=== PATIENT | female | born 1960 | race African-American/Black ===

== ENCOUNTER 2023-10-04 15:48 | Inpatient (IN) | payer MEDICARE, OTHER ==
[~2023-10-04] VITALS: Ht 167.6 cm; Wt 99.8 kg
[2023-10-04] MEDS ORDERED: ONDANSETRON HCL/PF 4 MG/2 ML VIAL ONE (16:29)
[2023-10-04] MEDS: ONDANSETRON HCL/PF 4 MG/2 ML VIAL IVP ONE (16:39)
[2023-10-04 16:40] LABS: BASOPHILS % (AUTO) 0.3 % (0.0-2.0); EOSINOPHILS % (AUTO) 0.1 % (0.0-6.0); HEMATOCRIT 25 % (33-45); HEMOGLOBIN 7.7 g/dL (11.5-14.8); LYMPHOCYTES # (AUTO) 1.2 K/uL (0.8-4.8); LYMPHOCYTES % (AUTO) 8.4 % (20.0-44.0); MEAN CORPUSCULAR HEMOGLOBIN 23 PG (26.0-33.0); MEAN CORPUSCULAR HGB CONC 31 g/dl (31.0-36.0); MEAN CORPUSCULAR VOLUME 74 fL (82-100); MONOCYTES # (AUTO) 0.8 K/uL (0.1-1.30); MONOCYTES % (AUTO) 6.1 % (2.0-12.0); NEUTROPHILS # (AUTO) 11.9 K/uL (1.8-8.9); NEUTROPHILS % (AUTO) 85.1 % (43.0-81.0); PLATELET COUNT (AUTO) 590 K/uL (150-450); RED BLOOD CELL COUNT(AUTO) 3.41 MIL/uL (4.0-5.2); RED CELL DISTRIBUTION WIDTH 22.2 % (11.5-15.0)
[2023-10-04 16:47] LABS: CARBON DIOXIDE 36 mmol/L (21-32); CHLORIDE 99 mmol/L (98-107); CREATININE 0.9 mg/dL (0.6-1.3); GLUCOSE 124 mg/dL (74-106); POTASSIUM 3.7 mmol/L (3.5-5.1); SODIUM SERUM 137 mmol/L (136-145); UREA NITROGEN, BLOOD 19 mg/dL (7-18)
[2023-10-04 16:53] LABS: ALANINE AMINOTRANSFERASE 32 U/L (12-78); ALBUMIN 2.2 g/dL (3.4-5.0); ALKALINE PHOSPHATASE 155 U/L (46-116); ASPARTATE AMINOTRANSFERASE 47 U/L (15-37); BILIRUBIN,DIRECT 0.3 mg/dL (0.0-0.2); BILIRUBIN,TOTAL 0.4 mg/dL (0.2-1.0); LIPASE 42 U/L (16-77); TOTAL PROTEIN, SERUM 7.9 g/dL (6.4-8.2)
[2023-10-04 16:57] LABS: CALCIUM, SERUM 8.7 mg/dL (8.5-10.1)
[2023-10-04] MEDS ORDERED: ENAL5TAB77 PO (17:54)
[2023-10-04] MEDS ORDERED: ACET-3478 PO (17:54)
[2023-10-04] MEDS ORDERED: OXYB5TAB16 PO (17:54)
[2023-10-04] MEDS ORDERED: CEFTRIAXONE 1GM BAG (ER ONLY) 50 ML IV ONE (18:59)
[2023-10-04] MEDS: CEFTRIAXONE 1GM BAG (ER ONLY) 50 ML IV ONE (18:59)
[2023-10-04 19:11] LABS: ANISOCYTOSIS 1+; BAND % (MANUAL) 1 % (0.0-5.0); HYPOCHROMASIA 1+; LYMPHOCYTES % (MANUAL) 14 % (16-48); MONOCYTES % (MANUAL) 10 % (0-11.0); NEUTROPHILS % (MANUAL) 75 (42-76); PLATELET ESTIMATE INCREASED
[2023-10-04] MEDS ORDERED: PIPERACI/TAZO 3.375GM/D5W 50ML PB IV ONE (19:17)
[2023-10-04 19:44] LABS: APPEARANCE,URINE Cloudy (CLEAR); BILIRUBIN,URINE SMALL (NEGATIVE); BLOOD, URINE Negative Ery/uL (NEGATIVE); COLOR,URINE YELLOW (YELLOW); KETONES,URINE Negative (NEGATIVE); LEUKOCYTE ESTERASE ,URINE Trace (NEGATIVE); NITRITE, URINE Negative (NEGATIVE); PH,URINE 8.5 (5.0-8.0); PROTEIN,URINE 30 mg/dl (NEGATIVE); UGLUCOSE Negative (NEGATIVE)
[2023-10-04] MEDS: PIPERACILLIN /TAZOBACTAM 3.375 G in IV D5W 50 ML IV ONE (19:45)
[2023-10-04 19:52] LABS: LACTIC ACID 3.3 mmol/L (0.4-2.0)
[2023-10-04 20:33] LABS: ADD URINE CULTURE YES; BACTERIA,URINE 4+ /HPF (None Seen); MUCUS,URINE Few /LPF (None Seen); RBC,URINE NONE SEEN /HPF (0-2); SQUAMOUS EPITHELIAL CELL,UR None Seen /HPF (None Seen)
[2023-10-04] MEDS ORDERED: Z GUARD REMEDY 4 OZ OINT TP PRN (22:00)
[2023-10-04] MEDS ORDERED: MAG HYDROX/AL HYDROX/SIMETH 30 ML UDC PO PRN (22:00)
[2023-10-04] MEDS ORDERED: ONDANSETRON HCL/PF 4 MG/2 ML VIAL IVP PRN (22:00)
[2023-10-04 23:06] VITALS: BP 118/84; TEMP 98.2; O2SAT 98
[2023-10-04] MEDS ORDERED: VANCOMYCIN 1 GM /D5W 250 ML PB IV ONE (23:49)
[2023-10-04] MEDS: VANCOMYCIN 1 GM in IV D5W 250ml IV ONE (23:55)
[2023-10-04] MEDS: IV NS 0.9% 1,000 ML IV ONE (23:57)
[2023-10-04] MEDS: ACETAMINOPHEN 325 MG TABLET PO PRN (23:57)
[2023-10-05] VITALS: BP 122/80; TEMP 98; O2SAT 98
[2023-10-05 04:00] VITALS: BP 120/83; TEMP 98.4; O2SAT 98
[2023-10-05 06:52] LABS: BASOPHILS % (AUTO) 0.1 % (0.0-2.0); HEMATOCRIT 22 % (33-45); LYMPHOCYTES # (AUTO) 1.6 K/uL (0.8-4.8); LYMPHOCYTES % (AUTO) 12.7 % (20.0-44.0); MEAN CORPUSCULAR HEMOGLOBIN 24 PG (26.0-33.0); MEAN CORPUSCULAR HGB CONC 31 g/dl (31.0-36.0); MEAN CORPUSCULAR VOLUME 75 fL (82-100); MONOCYTES # (AUTO) 0.9 K/uL (0.1-1.30); MONOCYTES % (AUTO) 7.2 % (2.0-12.0); NEUTROPHILS # (AUTO) 10.3 K/uL (1.8-8.9); PLATELET COUNT (AUTO) 520 K/uL (150-450); RED BLOOD CELL COUNT(AUTO) 2.88 MIL/uL (4.0-5.2); RED CELL DISTRIBUTION WIDTH 21.9 % (11.5-15.0); WHITE BLOOD COUNT (AUTO) 12.9 K/uL (4.3-11.0)
[2023-10-05 07:30] LABS: CALCIUM, SERUM 8.6 mg/dL (8.5-10.1); CREATININE 0.8 mg/dL (0.6-1.3); PHOSPHORUS 2.9 mg/dL (2.5-4.9); POTASSIUM 4.1 mmol/L (3.5-5.1)
[2023-10-05 07:44] LABS: LACTIC ACID 2.6 mmol/L (0.4-2.0)
[2023-10-05 07:46] LABS: HEMOGLOBIN 6.8 g/dL (11.5-14.8)
[2023-10-05 08:00] VITALS: BP 134/88; TEMP 98.5; O2SAT 98
[2023-10-05] MEDS: CEFEPIME 2 GM in IV D5W 100 ML IV SCH (08:40)
[2023-10-05] MEDS: PANTOPRAZOLE 40 MG VIAL IV SCH (08:41)
[2023-10-05] MEDS: HEPARIN SODIUM, PORCINE 5000 UNITS/1 ML VIAL SQ SCH (08:42)
[2023-10-05] MEDS: VANCOMYCIN 1 GM in IV D5W 250 ML IV SCH (09:59)
[2023-10-05 12:00] VITALS: BP 127/80; TEMP 98; O2SAT 100
[2023-10-05 12:27] LABS: THYROID STIMULATING HORMONE 1.453 uIU/mL (0.358-3.74)
[2023-10-05 16:00] VITALS: BP 137/86; TEMP 97.5; O2SAT 100
[2023-10-05 20:00] LABS: ANISOCYTOSIS 1+; HYPOCHROMASIA 1+; LYMPHOCYTES % (MANUAL) 10 % (16-48); MONOCYTES % (MANUAL) 5 % (0-11.0); NEUTROPHILS % (MANUAL) 85 (42-76); PLATELET ESTIMATE INCREASED; ROULEAUX 1+; TARGET CELLS RARE
[2023-10-05 20:01] LABS: OVALOCYTES 1+
[2023-10-05 20:42] VITALS: BP 126/89; TEMP 98; O2SAT 97
[2023-10-06] VITALS (8 sets, daily range): BP systolic 117–143; BP diastolic 78–93; TEMP 97.2–98.4; O2SAT 98–100
[2023-10-06 07:08] LABS: CALCIUM, SERUM 9.1 mg/dL (8.5-10.1); CREATININE 0.7 mg/dL (0.6-1.3); POTASSIUM 4.5 mmol/L (3.5-5.1)
[2023-10-06 07:59] LABS: BASOPHILS # (AUTO) 0.1 K/uL (0.0-0.2); BASOPHILS % (AUTO) 0.5 % (0.0-2.0); EOSINOPHILS # (AUTO) 0.1 K/uL (0.0-0.7); EOSINOPHILS % (AUTO) 1.4 % (0.0-6.0); HEMATOCRIT 24 % (33-45); HEMOGLOBIN 7.6 g/dL (11.5-14.8); LYMPHOCYTES # (AUTO) 1.4 K/uL (0.8-4.8); LYMPHOCYTES % (AUTO) 13.6 % (20.0-44.0); MEAN CORPUSCULAR HEMOGLOBIN 24 PG (26.0-33.0); MEAN CORPUSCULAR HGB CONC 32 g/dl (31.0-36.0); MEAN CORPUSCULAR VOLUME 75 fL (82-100); MONOCYTES # (AUTO) 0.9 K/uL (0.1-1.30); MONOCYTES % (AUTO) 8.2 % (2.0-12.0); NEUTROPHILS % (AUTO) 76.3 % (43.0-81.0); PLATELET COUNT (AUTO) 517 K/uL (150-450); RED BLOOD CELL COUNT(AUTO) 3.21 MIL/uL (4.0-5.2); RED CELL DISTRIBUTION WIDTH 21.8 % (11.5-15.0); WHITE BLOOD COUNT (AUTO) 10.4 K/uL (4.3-11.0)
[2023-10-06] MEDS: PROSOURCE / PROSTAT (PYXIS) 30 ML UDC PO SCH (08:56)
[2023-10-06 12:08] LABS: *SPE A/G RATIO 0.5 (0.7-1.7); *SPE ALPHA-1-GLOBULIN 0.5 g/dL (0.0-0.4); *SPE ALPHA-2-GLOBULIN 1.1 g/dL (0.4-1.0); *SPE BETA GLOBULIN 1.3 g/dL (0.7-1.3); *SPE GLOBULIN, TOTAL 4.3 g/dL (2.2-3.9); *SPE M-SPIKE Not Observed g/dL (Not Observed); *SPE PROTEIN TOTAL 6.3 g/dL (6.0-8.5); *SPEGAMMA GLOBULIN 1.5 g/dL (0.4-1.8)
[2023-10-06] MEDS: METOPROLOL TARTRATE 50 MG TABLET PO SCH (12:32)
[2023-10-06] MEDS: METOPROLOL TARTRATE INJ 5 MG/5 ML AMPUL IVP PRN (14:05)
[2023-10-06] MEDS ORDERED: CT SWABBABLE VALVE TRANS SET 1 EA INFUS.SET MC ONE (14:14)
[2023-10-06] MEDS ORDERED: IOHEXOL-350 100 ML VIAL IV ONE (14:14)
[2023-10-06] MEDS ORDERED: METOPROLOL TARTRATE INJ 5 MG/5 ML AMPUL ONE ×2 (14:14→14:19)
[2023-10-06] MEDS ORDERED: NITROGLYCERIN 0.4 MG/TAB BOTTLE ONE (14:14)
[2023-10-06] MEDS ORDERED: IV NS 0.9% 250 ML IV ONE (14:14)
[2023-10-06] MEDS: NITROGLYCERIN 0.4 MG/TAB BOTTLE SL ONE (14:23)
[2023-10-06] MEDS: SOD FERRIC GLUC 125 MG in IV NS 0.9% 100 ML IV SCH (14:47)
[2023-10-06] MEDS: MAGNESIUM HYDROXIDE 30 ML UDC PO PRN (17:11)
[2023-10-06] MEDS: ZOLPIDEM TARTRATE 5 MG TABLET PO PRN (21:00)
[2023-10-06] MEDS: VANCOMYCIN 750 MG in IV D5W 250 ML IV SCH (21:00)
[2023-10-07] VITALS: BP 119/98; TEMP 98.3; O2SAT 100
[2023-10-07 04:00] VITALS: BP 143/93; TEMP 98.6; O2SAT 100
[2023-10-07 06:24] LABS: BASOPHILS # (AUTO) 0.1 K/uL (0.0-0.2); BASOPHILS % (AUTO) 0.5 % (0.0-2.0); EOSINOPHILS # (AUTO) 0.2 K/uL (0.0-0.7); EOSINOPHILS % (AUTO) 1.7 % (0.0-6.0); HEMATOCRIT 25 % (33-45); HEMOGLOBIN 7.8 g/dL (11.5-14.8); LYMPHOCYTES # (AUTO) 1.3 K/uL (0.8-4.8); LYMPHOCYTES % (AUTO) 12.4 % (20.0-44.0); MEAN CORPUSCULAR HEMOGLOBIN 24 PG (26.0-33.0); MEAN CORPUSCULAR HGB CONC 32 g/dl (31.0-36.0); MEAN CORPUSCULAR VOLUME 75 fL (82-100); MONOCYTES # (AUTO) 0.9 K/uL (0.1-1.30); MONOCYTES % (AUTO) 8.2 % (2.0-12.0); NEUTROPHILS # (AUTO) 8.3 K/uL (1.8-8.9); NEUTROPHILS % (AUTO) 77.2 % (43.0-81.0); PLATELET COUNT (AUTO) 472 K/uL (150-450); RED BLOOD CELL COUNT(AUTO) 3.27 MIL/uL (4.0-5.2); RED CELL DISTRIBUTION WIDTH 21.9 % (11.5-15.0); WHITE BLOOD COUNT (AUTO) 10.7 K/uL (4.3-11.0)
[2023-10-07 06:47] LABS: CALCIUM, SERUM 8.9 mg/dL (8.5-10.1); CREATININE 0.6 mg/dL (0.6-1.3); POTASSIUM 4.5 mmol/L (3.5-5.1)
[2023-10-07 08:35] VITALS: BP 109/75
[2023-10-07] MEDS: PANTOPRAZOLE 40 MG TABLET.DR PO SCH (08:35)
[2023-10-07] MEDS: hydrALAZINE HCL 50 MG TABLET PO SCH (08:35)
[2023-10-07] MEDS ORDERED: METO50TA16 PO (08:39)
[2023-10-07] MEDS ORDERED: FERR325T23 PO (08:39)
[2023-10-07] MEDS ORDERED: LEVO500T90 PO (08:51)
[2023-10-07] MEDS ORDERED: VANCOMYCIN 750 MG in IV D5W 250 ML IV SCH (09:00)
[2023-10-11 13:38] VITALS: BP 118/44; TEMP 98.1; O2SAT 98
== END 2023-10-07 10:05 | disposition home or self-care (01) | DRG 194 ==
LOC: ER 15:51 → TELE1 21:38 → MEDSG1 10-07 07:57
PROVIDERS: ADMIT Nurse Practitioner Acute Care; ATTEND Internal Medicine
DX: J15.9 Unspecified bacterial pneumonia (principal); I31.39 Other pericardial effusion (noninflammatory); N39.0 Urinary tract infection, site not specified; J98.11 Atelectasis; I31.9 Disease of pericardium, unspecified; R65.10 Systemic inflammatory response syndrome (SIRS) of non-infectious origin without acute organ dysfunction; K92.2 Gastrointestinal hemorrhage, unspecified; K80.20 Calculus of gallbladder without cholecystitis without obstruction; E86.0 Dehydration; E66.9 Obesity, unspecified; K44.9 Diaphragmatic hernia without obstruction or gangrene; I10 Essential (primary) hypertension; M19.90 Unspecified osteoarthritis, unspecified site; K57.90 Diverticulosis of intestine, part unspecified, without perforation or abscess without bleeding; D50.9 Iron deficiency anemia, unspecified; B96.20 Unspecified Escherichia coli [E. coli] as the cause of diseases classified elsewhere; K40.90 Unilateral inguinal hernia, without obstruction or gangrene, not specified as recurrent; D25.9 Leiomyoma of uterus, unspecified; R74.8 Abnormal levels of other serum enzymes; R74.01 Elevation of levels of liver transaminase levels; D64.9 Anemia, unspecified; Z68.35 Body mass index [BMI] 35.0-35.9, adult; Z74.01 Bed confinement status
CPT/HCPCS: 36415; 71045-TC; 71250-TC; 75574; 76705-TC; 80048-TC; 80061-TC; 80076-TC; 80202-TC; 81001; 82728-TC; 83540-TC; 83605-TC; 83690-TC; 83735-TC; 84100-TC; 84155; 84165; 84439-TC; 84443-TC; 84484-TC; 85025-TC; 85652-TC; 87040-TC; 87086-TC; 93307-TC; 94760-TC; 94799-TC; 97110-TC; 97530-TC; A4223; C9113; G0378; J0692; J0696; J1644; J2405; J2543; J2916; J3370; J3371; J3490; J7030; J7040; J7050; J7060; Q9967